=== PATIENT | female | born 1990 ===

== ENCOUNTER 2025-08-29 22:33 | Emergency (ER) | payer OTHER ==
[~2025-08-29] VITALS: Ht 170.2 cm; Wt 59.0 kg
[2025-08-29] MEDS ORDERED: CEFTRIAXONE SODIUM 1,000 MG VIAL IM ONE (23:45)
== END 2025-08-30 02:33 | disposition home or self-care (01) ==
LOC: ER 22:34
DX: B37.31 Acute candidiasis of vulva and vagina (principal)